=== PATIENT | male | born 1975 | race Caucasian/White ===

== ENCOUNTER 2021-07-16 00:56 | Day surgery (SDC) | payer BC, SELFPAY ==
[2021-07-04 12:52] VITALS: BMI 34.2
--- NOTE | 2021-07-16 07:34 | WPDANESEPPF ---
Anes - Initial Pre Proc Eval Procedure: Operation Date: 07/16/21 11:00 Proposed Procedures p Screening Colonoscopy - Cisco Govea MD Date/Time: 07/16/21 07:34 Surgeon: Cisco Govea MD Pre Op Diagnosis: neoplasm screening Patient Data Age: 46 Gender: M Height: 1.75 m Weight: 105 kg Allergies Allergy/AdvReac Type Severity Reaction Status Date / Time No Known Allergies Allergy Mild Verified 07/16/21 09:51 Home Medications Medication Instructions Recorded Confirmed Type One-A-Day Men's Multivitamin 1 tablet PO DAILY 07/04/21 07/16/21 History alprazolam 0.5 mg PO BID PRN 07/04/21 07/16/21 History fenofibrate 160 mg PO DAILY 07/04/21 07/16/21 History loratadine 10 mg PO DAILY 07/04/21 07/16/21 History losartan 25 mg PO DAILY 07/04/21 07/16/21 History metformin 500 mg PO DAILY 07/04/21 07/16/21 History omega 8-jtf-qtj-fish oil [Fish Oil] 1 cap PO DAILY 07/04/21 07/16/21 History triamterene-hydrochlorothiazid 1 cap PO DAILY 07/04/21 07/16/21 History venlafaxine 150 mg PO DAILY 07/04/21 07/16/21 History Patient hx anesthesia problems: none Family hx anesthesia problems: none Results Review: All pre-operative results and documents have been reviewed as part of the pre-operative evaluation. FORMERLY [facility], [facility] Past Medical History Medical History (Updated 07/16/21 @ 07:34 by Yohannes Hodges DO) Anxiety Hyperlipidemia Hypertension FREDI (obstructive sleep apnea) CPAP Pre-diabetes Social History Social History Smoking status: Former smoker Tobacco type: cigarettes Alcohol intake: current Drinks per week: 15 Living arrangements: with family Spiritual care concerns: No Anes - Eval Final PreProcedure Day of Procedure 07/16/21 07:34 Patient weight: obese Heart: regular rate and rhythm Lungs: clear to auscultation and normal air movement Airway: Mallampati scale class II Neurological: alert and oriented Last oral intake: >/= 8 hours ASA classification: III Emergent: no Anesthetic plan: proceed Anesthesia type and monitoring: general GIVS and standard monitoring Results Review: All pre-operative results and documents have been reviewed as part of the pre-operative evaluation. Informed Consent: The patient's anesthetic plan and its attendant risks and benefits were discussed with the patient/family/POA. Questions were solicited and answers provided to the satisfaction of the patient/family/POA.
[2021-07-16 09:42] VITALS: BP 183/96; PULSE 97; RESP 18; TEMP 35.7; O2SAT 97; BMI 34.4
[2021-07-16] MEDS: LACTATED RINGERS 1,000 ML 150 ML IV CONT (10:06)
[2021-07-16 10:07] LABS: Glucose Point of Care 120 mg/dl (65-105)
--- NOTE | 2021-07-16 10:37 | PM.HPGS ---
History of Present Illness History of Present Illness Consent: Risks, benefits, and alternatives have been discussed and questions answered. Patient agrees to proceed with procedure. Chief complaint: neoplasm screening Narrative: Luis Pamler is a 46 year old male here for screening colonoscopy, father had colon cancer. He had colonoscopy about 16 years ago because IBS Review of Systems Constitutional: Constitutional: Denies headache(s) and Denies weakness Eyes: Eyes: Denies blurry vision ENT: Reports Normal hearing present, Denies headache(s) and Denies neck pain Cardiovascular: Cardiovascular: Denies chest pain and Denies dyspnea Respiratory: Respiratory: Denies dyspnea Gastrointestinal: Gastrointestinal: Reports no additional gastrointestinal complaints Genitourinary: Genitourinary: Denies dysuria Musculoskeletal: Musculoskeletal: Denies neck pain Integumentary/Breasts: Skin/Breast: Denies dry skin Neurologic: Reports Normal hearing present, Denies headache(s) and Denies weakness Psychiatric: Psychiatric: Denies anxiety Endocrine: Endocrine: Denies change in body appearance Hematologic/Lymphatic: Hematologic/Lymphatic: Denies easy bleeding Allergic/Immunologic: Allergic/Immunologic: Denies urticaria PMFSH Past Medical History Medical History (Updated 07/16/21 @ 10:38 by Cisco Govea MD) Anxiety Family history of colon cancer in father Hyperlipidemia Hypertension FREDI (obstructive sleep apnea) CPAP Pre-diabetes Social History Social History Smoking status: Former smoker Tobacco type: cigarettes Alcohol intake: current Drinks per week: 15 Living arrangements: with family Spiritual care concerns: No Meds Home Medications and Allergies Home Medications Medication Instructions Recorded Confirmed Type One-A-Day Men's Multivitamin 1 tablet PO DAILY 07/04/21 07/16/21 History alprazolam 0.5 mg PO BID PRN 07/04/21 07/16/21 History fenofibrate 160 mg PO DAILY 07/04/21 07/16/21 History loratadine 10 mg PO DAILY 07/04/21 07/16/21 History losartan 25 mg PO DAILY 07/04/21 07/16/21 History metformin 500 mg PO DAILY 07/04/21 07/16/21 History omega 9-lwx-ocf-fish oil [Fish Oil] 1 cap PO DAILY 07/04/21 07/16/21 History triamterene-hydrochlorothiazid 1 cap PO DAILY 07/04/21 07/16/21 History venlafaxine 150 mg PO DAILY 07/04/21 07/16/21 History Allergies Allergy/AdvReac Type Severity Reaction Status Date / Time No Known Allergies Allergy Mild Verified 07/16/21 09:51 Vital Signs Vital Signs - 24 hr 07/16/21 09:42 Temperature 96.3 F L Pulse Rate 97 Respiratory Rate 18 Blood Pressure 183/96 H Pulse Oximetry 97 Exam Const: General: comfortable and no acute distress HENMT: General nose exam: Normal nares present Eyes: General: appearance normal, both eyes and all related structures Neck: Neck: no JVD Resp: Auscultation: clear to auscultation bilaterally Cardio: Rate: regular rate Rhythm: regular rhythm GI: Inspection: non-distended GI Palp: Yes Soft to palpation Skin: General skin exam: normal color Neuro: General: gait normal Speech: normal speech Extrem: General: normal to inspection Psych: Mental Status: mental status grossly normal Assessment and Plan Assessment and plan (1) Family history of colon cancer in father: Code(s): Z80.0 - Family history of malignant neoplasm of digestive organs Status: Acute Assessment and Plan: colonoscopy
[2021-07-16 10:55] VITALS: BP 135/81; PULSE 93; RESP 24; O2SAT 94
[2021-07-16 11:05] VITALS: BP 139/87; PULSE 84; RESP 19; O2SAT 95
[2021-07-16 11:15] VITALS: BP 143/97; PULSE 84; RESP 16; O2SAT 95
== END 2021-07-16 11:24 | disposition home or self-care (01) ==
PROVIDERS: PCP Nurse Practitioner Adult Health; Visit Provider Internal Medicine Gastroenterology
PROC: 0DJD8ZZ Inspection of Lower Intestinal Tract, Via Natural or Artificial Opening Endoscopic (ICD-10-PCS; CPT 45378; principal; 2021-07-16 11:00)
DX: Z12.11 Encounter for screening for malignant neoplasm of colon (principal); K57.30 Diverticulosis of large intestine without perforation or abscess without bleeding; K64.8 Other hemorrhoids; Z80.0 Family history of malignant neoplasm of digestive organs; E78.5 Hyperlipidemia, unspecified; I10 Essential (primary) hypertension; G47.33 Obstructive sleep apnea (adult) (pediatric); R73.03 Prediabetes; F41.9 Anxiety disorder, unspecified; Z79.84 Long term (current) use of oral hypoglycemic drugs; Z87.891 Personal history of nicotine dependence; E66.9 Obesity, unspecified; Z68.34 Body mass index [BMI] 34.0-34.9, adult
CPT/HCPCS: 45378; 82948; J2704; J7120

== ENCOUNTER → 2022-05-13 13:38 | Outpatient (CLI) | payer BC, SELFPAY ==
--- NOTE | ~2022-05-13 | US_ITS ---
EXAMINATION: US retroperitoneal duplex ltd DATE: 05/13/2022 14:41 INDICATION: Essential hypertension TECHNIQUE: Multiple grayscale, color Doppler, and pulsed Doppler images of the kidneys and renal remington indu were obtained. COMPARISON: None. FINDINGS: The aorta peak systolic velocity is 155 cm/s. The right renal artery peak systolic velocity is 167 cm /s in the proximal segment, 109 cm/s in the mid segment, and 112 cm/s in the distal segment. The left renal artery peak systolic velocity is 153 cm/s in the proximal segment, 153 cm/s in the mid segment , and 103 cm/s in the distal segment. IMPRESSION: 1. No Doppler evidence of renal artery stenosis. Reviewed, dictated and finalized at location B. [employer]
== END ==
PROVIDERS: PCP Nurse Practitioner Adult Health; Visit Provider Nurse Practitioner Adult Health
DX: I10 Essential (primary) hypertension (principal)
CPT/HCPCS: 93976

== ENCOUNTER 2023-02-23 14:36 | Outpatient (CLI) | payer BC, SELFPAY ==
--- NOTE | ~2023-02-23 | XR_ITS ---
XR elbow LT 2V DATE: 02/23/2023 14:47 INDICATION: Left elbow pain TECHNIQUE: AP and lateral views COMPARISON: None FINDINGS: No fracture or dislocation or joint effusion. No periosteal reaction or bone destruction. IMPRESSION: Negative Reviewed, dictated and finalized at location L. IMPRESSION: Negative
== END 2023-02-23 14:37 | disposition home or self-care (01) ==
PROVIDERS: PCP Nurse Practitioner Adult Health; Visit Provider Nurse Practitioner Adult Health
DX: M25.522 Pain in left elbow (principal)
CPT/HCPCS: 73070

== ENCOUNTER 2023-09-21 14:29 | Outpatient (CLI) | payer BC, SELFPAY ==
--- NOTE | ~2023-09-21 | XR_ITS ---
EXAMINATION: XR lumbar spine 2-3V DATE: 09/21/2023 14:50 INDICATION: Paresthesias of the skin TECHNIQUE: Anteroposterior and lateral views of the lumbar spine, and cone-down lateral view of the l umbosacral junction were obtained. COMPARISON: 12/16/2011 FINDINGS: There are 3 mm of retrolisthesis of L3 on L4. The vertebral body heights are maintained. Th ere is mild loss of intervertebral disc space height throughout the lumbar spine. There is no fractur e. Small degenerative osteophytes project from the anterior endplates of multiple vertebral bodies. T here is mild facet joint osteoarthritis of the lower lumbar spine. IMPRESSION: 1. Mild lumbar spondylosis without acute findings. Reviewed, dictated and finalized at location F.
== END 2023-09-21 14:30 | disposition home or self-care (01) ==
PROVIDERS: PCP Nurse Practitioner Adult Health; Visit Provider Nurse Practitioner Adult Health
DX: R20.2 Paresthesia of skin (principal); M47.896 Other spondylosis, lumbar region
CPT/HCPCS: 72100

== ENCOUNTER 2025-02-28 08:56 | Outpatient (CLI) | payer BC, SELFPAY ==
--- NOTE | ~2025-02-28 | XR_ITS ---
EXAM/ PROCEDURE: XR shoulder LT min 2V - 02/28/2025 9:15 CDT HISTORY: 49 years old Male with SUPERIOR LATERAL LT SHOULDER PAIN ONSET AFTER FALL x2WKS COMPARISON: None available TECHNIQUE: Four view(s) FINDINGS/ IMPRESSION: There are no fractures or dislocations.Joint spaces are within normal limits. Reviewed, dictated and finalized at location N.
== END 2025-02-28 08:57 | disposition home or self-care (01) ==
LOC: MICIMG 08:57
PROVIDERS: PCP Nurse Practitioner Adult Health; Visit Provider Nurse Practitioner Adult Health
DX: M25.512 Pain in left shoulder (principal)
CPT/HCPCS: 73030